=== PATIENT | male | born 1970 | race Caucasian/White ===

== ENCOUNTER → 2018-05-17 | Outpatient (CLI) | payer OTHER ==
--- NOTE | 2018-05-17 12:37 | Diagnostic Imaging Report ---
PROCEDURE: US right lower extremity venous. TECHNIQUE: Multiple Real-time grayscale images were obtained over the right lower extremity in various projections. Additional spectral analysis and color Doppler duplex images were also obtained. DATE: May 17, 2018. INDICATION: 47-year-old male, right calf pain. COMPARISON: None. FINDINGS: The right common femoral vein, right superficial femoral vein, and right popliteal vein are patent. The visualized portions of the right deep femoral vein are patent. The right posterior tibial vein is patent. The right peroneal vein is not well seen. Additional ultrasound images are provided at the level of the lateral ankle without sonographically demonstrated fluid collection or mass in this region. At the level of the posterior ankle, there is subcutaneous edema noted. IMPRESSION: 1. Negative for right lower extremities deep venous thrombosis. 2. Nonspecific subcutaneous edema posteriorly at the level of the ankle. 3. No sonographically demonstrated focal fluid collection or mass. Dictated by: Dictated on workstation # [id number]
== END ==
LOC: RAD 11:12
PROVIDERS: ATTEND Nurse Practitioner Family
DX: R60.0 Localized edema (principal)

== ENCOUNTER 2020-04-11 19:07 | Emergency (ER) | payer OTHER ==
[~2020-04-11] VITALS: Ht 175.3 cm; Wt 163.3 kg
[2020-04-11] MEDS ORDERED: ASPIRIN 81 MG CHEW (CHILDREN'S ASA) PO ONE (19:30)
--- NOTE | 2020-04-11 19:34 | ED Upper Extremity ---
General Chief Complaint: Upper Extremity Stated Complaint: LEFT ARM NUMBNESS Nursing Triage Note: LEFT ARM NUMBNESS X1 HR STARTING AT 1630. SENT HERE FROM [facility]. Nursing Sepsis Screen: No Definite Risk Source: patient Exam Limitations: no limitations History of Present Illness Date Seen by Provider: Apr 11, 2020 Time Seen by Provider: 19:10 Initial Comments Patient presents to the ER from [facility] with chief complaint he had a concerning EKG finding after complaining of left arm numbness that lasted about an hour starting around 4-4 30. He says he was at his desk on his phone not doing anything strenuous when his left arm started to go numb. He thought maybe is because of the positioning of his arm. He says this is happened before. He went to the walk-in clinic and they did an EKG and sent him here. He has no previous history of coronary disease hypertension hyperlipidemia smoking diabetes or early onset coronary history with his family. Patient is not having any chest pain and the symptoms went away in about an hour. He is not having any shortness of breath cough fever chills nausea vomiting diarrhea loss of sense of taste or smell. Allergies and Home Medications Allergies Coded Allergies: amoxicillin (Verified Allergy, Unknown, 04/11/20) Patient Home Medication List Home Medication List Reviewed: Yes Review of Systems Constitutional: No chills, No diaphoresis EENTM: No ear discharge, No ear pain Respiratory: No cough, No short of breath Cardiovascular: No chest pain, No Hx of Intervention Gastrointestinal: No abdominal pain, No nausea, No vomiting Genitourinary: No discharge, No dysuria Musculoskeletal: No back pain, No joint pain Psychiatric/Neurological: See HPI Past Zzgzrqn-Cnxoap-Rqhiam Hx Patient Social History Alcohol Use: Occasionally Uses Recreational Drug Use: No Smoking Status: Current Everyday Smoker Type Used: Cigarettes 2nd Hand Smoke Exposure: Yes Recent Foreign Travel: No Contact w/Someone Who Travel: No Recent Infectious Disease Expo: No Recent Hopitalizations: No Immunizations Up To Date Tetanus Booster (TDap): Unknown Seasonal Allergies Seasonal Allergies: No Past Medical History Surgeries: Yes Orthopedic Respiratory: No Cardiac: No Neurological: No Genitourinary: No Gastrointestinal: No Musculoskeletal: No Endocrine: No HEENT: No Cancer: No Psychosocial: No Integumentary: No Blood Disorders: No Physical Exam Vital Signs Vital Signs - First Documented 04/11/20 19:11 Temp 36.2 Pulse 86 Resp 16 B/P (MAP) 157/89 (111) Pulse Ox 99 O2 Delivery Room Air Capillary Refill : Less Than 3 Seconds Height, Weight, BMI Height: '" Weight: lbs. oz. kg; 53.00 BMI Method: General Appearance: WD/WN, no apparent distress HEENT: PERRL/EOMI, pharynx normal Neck: full range of motion, normal inspection Cardiovascular: normal peripheral pulses, regular rate, rhythm Respiratory: chest non-tender, lungs clear, normal breath sounds, no respiratory distress, no accessory muscle use Gastrointestinal: normal bowel sounds, non tender, soft Shoulder: normal inspection, non-tender, no evidence of injury, normal ROM Elbow/Forearm: normal inspection, non-tender, no evidence of injury, normal ROM, Left (Negative for tenderness over the ulnar nerve) Wrist: Yes normal inspection, Yes non-tender, Yes no evidence of injury, Yes normal ROM; No pain (Negative for Tinel's tap) Progress/Results/Core Measures Results/Orders Lab Results Laboratory Tests Test 04/11/20 19:24 Range/Units White Blood Count 9.7 4.3-11.0 10^3/uL Red Blood Count 4.95 4.30-5.52 10^6/uL Hemoglobin 14.2 13.3-17.7 g/dL Hematocrit 43 40-54 % Mean Corpuscular Volume 87 80-99 fL Mean Corpuscular Hemoglobin 29 25-34 pg Mean Corpuscular Hemoglobin Concent 33 32-36 g/dL Red Cell Distribution Width 12.4 10.0-14.5 % Platelet Count 221 130-400 10^3/uL Mean Platelet Volume 10.8 9.0-12.2 fL Immature Granulocyte % (Auto) 0 % Neutrophils (%) (Auto) 63 42-75 % Lymphocytes (%) (Auto) 28 12-44 % Monocytes (%) (Auto) 7 0-12 % Eosinophils (%) (Auto) 2 0-10 % Basophils (%) (Auto) 0 0-10 % Neutrophils # (Auto) 6.1 1.8-7.8 10^3/uL Lymphocytes # (Auto) 2.7 1.0-4.0 10^3/uL Monocytes # (Auto) 0.7 0.0-1.0 10^3/uL Eosinophils # (Auto) 0.2 0.0-0.3 10^3/uL Basophils # (Auto) 0.0 0.0-0.1 10^3/uL Immature Granulocyte # (Auto) 0.0 0.0-0.1 10^3/uL Prothrombin Time 13.1 12.2-14.7 SEC INR Comment 1.0 0.8-1.4 Activated Partial Thromboplast Time 39 H 24-35 SEC Sodium Level 137 135-145 MMOL/L Potassium Level 4.0 3.6-5.0 MMOL/L Chloride Level 98 98-107 MMOL/L Carbon Dioxide Level 29 21-32 MMOL/L Anion Gap 10 5-14 MMOL/L Blood Urea Nitrogen 13 7-18 MG/DL Creatinine 1.19 0.60-1.30 MG/DL Estimat Glomerular Filtration Rate > 60 BUN/Creatinine Ratio 11 Glucose Level 170 H 70-105 MG/DL Calcium Level 9.1 8.5-10.1 MG/DL Corrected Calcium 8.9 8.5-10.1 MG/DL Magnesium Level 1.5 L 1.6-2.4 MG/DL Total Bilirubin 0.4 0.1-1.0 MG/DL Aspartate Amino Transf (AST/SGOT) 24 5-34 U/L Alanine Aminotransferase (ALT/SGPT) 33 0-55 U/L Alkaline Phosphatase 93 40-136 U/L Myoglobin 63.0 10.0-92.0 NG/ML Troponin I < 0.028 <0.028 NG/ML Total Protein 7.6 6.4-8.2 GM/DL Albumin 4.2 3.2-4.5 GM/DL My Orders Orders - VINEETCLOTILDE Cbc With Automated Diff (04/11/20 19:30) Magnesium (04/11/20 19:30) Chest 1 View, Ap/Pa Only (04/11/20:30) Ekg Tracing (04/11/20:30) Comprehensive Metabolic Panel (04/11/20:30) Myoglobin Serum (04/11/20:30) Protime With Inr (04/11/20:30) Partial Thromboplastin Time (04/11/20:30) O2 (04/11/20:30) Monitor-Rhythm Ecg Trace Only (12/23/20 19:30) Ed Iv/Invasive Line Start (04/11/20 19:30) Troponin I (04/11/20 19:30) Aspirin Chewable Tablet (Baby Aspirin Ch (04/11/20 19:30) Medications Given in ED Current Medications Medications Dose Ordered Sig/Donell Route Start Time Stop Time Status Last Admin Dose Admin Aspirin 324 mg ONCE ONCE PO 04/11/20 19:30 04/11/20 19:31 DC 04/11/20 19:34 324 MG Vital Signs/I&O 04/11/20 04/11/20 19:11 20:40 Temp 36.2 36.2 Pulse 86 77 Resp 16 23 B/P (MAP) 157/89 (111) 114/84 (111) Pulse Ox 99 98 O2 Delivery Room Air Room Air Blood Pressure Mean: 111 Progress Progress Note : Time: 19:32 Progress Note Suspect a left arm compressive neuropathy related to resting his arm on the arms of his chair for too long. He does have the risk factor of obesity and we will go ahead and obtain chest x-ray, EKG labs that will help rule out any cardiac involvement. We will set him up for outpatient follow-up for risk stratification with cardiology if his troponin is negative. With a negative troponin his heart score would be one-point. Patient is okay with this plan and is asymptomatic at this time. Initial ECG Impression Date: Apr 11, 2020 Initial ECG Impression Time: 19:15 Initial ECG Rate: 84 Initial ECG Rhythm: Normal Sinus Initial ECG Intervals: Normal Initial ECG Impression: Normal Initial ECG Comparisson: No Previous ECG Available Comment Normal sinus rhythm without any clinically relevant ST changes. Compared to previous EKG from the clinic that accompanies the patient which has significant artifact but also no clinically relevant ST changes. Diagnostic Imaging Diagonstic Imaging: Xray Plain Films/CT/US/NM/MRI: chest Comments NAME: RENETTA LAROSE [facility] REC#: [id number] PT STATUS: REG ER : 1970 PHYSICIAN: CLOTILDE MANLEY MD ADMIT DATE: 04/11/20/ER Signed Date of Exam:04/11/20 CHEST 1 VIEW, AP/PA ONLY INDICATION: Left arm numbness. COMPARISON: Prior examination from 04/22/2010. FINDINGS: The heart size, mediastinal configuration, and pulmonary vascularity are within normal limits. There is no pleural effusion, pneumothorax, or pneumonia. The osseous structures are unremarkable. IMPRESSION: No acute cardiopulmonary abnormality. Dictated by: Dictated on workstation # [id number] Dict: 04/11/201945 Trans: 04/11/201954 [facility] [id number] Interpreted by: ELDA YANG MD Electronically signed by: ELDA YANG MD 04/11/201954 Reviewed: Reviewed by Me Departure Impression Primary Impression: Compression neuropathy Disposition: HOME, SELF-CARE Condition: Stable Departure-Patient Inst. Decision time for Depature: 20:20 Referrals: [facility] [place] [place] (PCP/Family) Primary Care Physician CLAUDIA ESPINOZA MD [facility] Patient Instructions: Cubital Tunnel Syndrome (DC), Paresthesia (DC) Add. Discharge Instructions: I suspect your symptoms were related to resting your arm or elbow directly over the nerve causing compression leading to transient numbness. This is not a dangerous situation and will typically resolve on its own in a short amount of time. If you have chest pain, shortness of air or other worrisome symptoms I encourage you to return to the nearest ER. If you would like to follow-up with a reflexologist to have your heart risk stratified so that you can understand what your particular risks for heart disease and stroke are then you should call Dr. Espinoza and request an appointment in the next 2 to 4 weeks. All discharge instructions reviewed with patient and/or family. Voiced understanding. Copy Copies To 1: CLAUDIA ESPINOZA MD [facility] CLOTILDE MANLEY Apr 11, 2020 19:34
[2020-04-11 19:37] LABS: BASOPHILS % (AUTO) 0 % (0-10); EOSINOPHILS # (AUTO) 0.2 10^3/uL (0.0-0.3); EOSINOPHILS % (AUTO) 2 % (0-10); HEMATOCRIT 43 % (40-54); HEMOGLOBIN 14.2 g/dL (13.3-17.7); LYMPHOCYTES # (AUTO) 2.7 10^3/uL (1.0-4.0); LYMPHOCYTES % (AUTO) 28 % (12-44); MEAN CORPUSCULAR HEMOGLOBIN 29 pg (25-34); MEAN CORPUSCULAR HGB CONC 33 g/dL (32-36); MEAN CORPUSCULAR VOLUME 87 fL (80-99); MEAN PLATELET VOLUME 10.8 fL (9.0-12.2); MONOCYTES # (AUTO) 0.7 10^3/uL (0.0-1.0); MONOCYTES % (AUTO) 7 % (0-12); NEUTROPHILS # (AUTO) 6.1 10^3/uL (1.8-7.8); NEUTROPHILS % (AUTO) 63 % (42-75); PLATELET COUNT 221 10^3/uL (130-400); WHITE BLOOD COUNT 9.7 10^3/uL (4.3-11.0)
[2020-04-11 19:46] LABS: PROTHROMBIN TIME PATIENT 13.1 SEC (12.2-14.7)
--- NOTE | 2020-04-11 19:51 | Diagnostic Imaging Report ---
INDICATION: Left arm numbness. COMPARISON: Prior examination from 04/22/2010. FINDINGS: The heart size, mediastinal configuration, and pulmonary vascularity are within normal limits. There is no pleural effusion, pneumothorax, or pneumonia. The osseous structures are unremarkable. IMPRESSION: No acute cardiopulmonary abnormality. Dictated by: Dictated on workstation # [id number]
[2020-04-11 19:58] LABS: ALANINE AMINOTRANSFERASE 33 U/L (0-55); ALBUMIN 4.2 GM/DL (3.2-4.5); ALKALINE PHOSPHATASE 93 U/L (40-136); BILIRUBIN,TOTAL 0.4 MG/DL (0.1-1.0); BUN/CREATININE RATIO 11; CALCIUM 9.1 MG/DL (8.5-10.1); CARBON DIOXIDE 29 MMOL/L (21-32); CHLORIDE 98 MMOL/L (98-107); CREATININE SERUM 1.19 MG/DL (0.60-1.30); GFR ESTIMATED > 60; GLUCOSE 170 MG/DL (70-105); MAGNESIUM 1.5 MG/DL (1.6-2.4); SODIUM 137 MMOL/L (135-145); TOTAL PROTEIN 7.6 GM/DL (6.4-8.2)
[2020-04-11 20:40] VITALS: BP 114/84
== END 2020-04-11 20:41 | disposition home or self-care (01) ==
LOC: EDUNIT# 19:07 → ER 19:09
DX: G62.9 Polyneuropathy, unspecified (principal); F17.210 Nicotine dependence, cigarettes, uncomplicated; Z88.1 Allergy status to other antibiotic agents
CPT/HCPCS: 36415; 71045; 80053; 83735; 83874; 84484; 85025; 85610; 85730; 93041